=== PATIENT | female | born 1995 | race Hispanic/Latino ===

== ENCOUNTER 2018-12-18 10:26 | Emergency (ER) | payer SELFPAY ==
[2018-12-18 11:06] LABS: Absolute Lymphocytes (CBC) 1.6 K/uL (0.7-4.9); Absolute Monocytes 0.6 K/uL (0.1-1.3); Absolute Neutrophil 7.3 K/uL (1.8-8.0); Basophils % 0.3 % (0-1.3); Eosinophils % 1.8 % (0-4.4); Lymphocytes % 16.7 % (15.3-44.8); MPV 9.3 fL (7.6-11.3); Monocytes % 6.1 % (3.3-12.3); RBC Red Blood Cell Count 3.99 M/uL (3.86-4.86)
[2018-12-18 11:22] LABS: BUN Blood Urea Nitrogen 12 mg/dL (7-18); Bicarbonate 27 mmol/L (21-32); Glucose Level 87 mg/dL (74-106); Potassium 3.8 mmol/L (3.5-5.1); Sodium Level 140 mmol/L (136-145)
[2018-12-18 11:22] LABS: Urine Blood NEGATIVE (NEG); Urine Glucose NEGATIVE (NEG); Urine Protein TRACE (NEG); Urine pH 7.5 (5.0-7.0)
[2018-12-18] MEDS ORDERED: KETOROLAC 30 MG/ML INJ ONE (11:24)
--- NOTE | 2018-12-18 11:38 | RAD REPORT ---
EXAM DESCRIPTION: US - Transvaginal Study Probe - 12/18/2018 11:27 am CLINICAL HISTORY: Pelvic pain COMPARISON: none FINDINGS: The uterus measures 8 x 4 x 6cm. A fibroid is not seen. Endometrial stripe measures 3 mill imeters. The ovaries are normal in size and echotexture. An adnexal mass is not seen. No significant free fluid is seen. IMPRESSION: Unremarkable pelvic ultrasound
--- NOTE | 2018-12-18 11:43 | ER ---
Nurse's Notes [facility] Name: Samia Dominguez Age: 23 yrs Sex: Female : 1995 Arrival Date: 12/18/2018 Time: 10:29 Bed 13 Private MD: None, None Diagnosis: Dysmenorrhea, unspecified Presentation: 12/18 10:45 Presenting complaint: Patient states: Have had lower abdominal and pelvic pain for a sg couple days, has had painful menstruation in the past with cramping but never has had the pain be this bad, reports is currently on her period with a heavy flow, denies N/V/D/Fever. Transition of care: patient was not received from another setting of care. Onset of symptoms was December 18, 2018. Risk Assessment: Do you want to hurt yourself or someone else? Patient reports no desire to harm self or others. Initial Sepsis Screen: Does the patient meet any 2 criteria? No. Patient's initial sepsis screen is negative. Does the patient have a suspected source of infection? Yes: Acute abdominal pain. Care prior to arrival: Medication(s) given: Tramadol 50, Motrin 400, Acetaminophen 1 gram. 10:45 Method Of Arrival: Ambulatory sg 10:45 Acuity: GIANLUCA 3 sg TIER OVER: 10:56 LMP 12/18/2018 sg Historical: - Allergies: 10:58 No Known Allergies; sg - Home Meds: 10:58 Xopenex Inhl [Active]; sg - PMHx: 10:58 Asthma; sg - PSHx: 10:58 ; sg - Immunization history:: Adult Immunizations up to date. - Social history:: Smoking status: Patient/guardian denies using tobacco. - Ebola Screening: : Patient negative for fever greater than or equal to 101.5 degrees Fahrenheit, and additional compatible Ebola Virus Disease symptoms Patient denies exposure to infectious person Patient denies travel to an Ebola-affected area in the 21 days before illness onset No symptoms or risks identified at this time. Screenin:50 Abuse screen: Denies threats or abuse. Denies injuries from another. Nutritional sg screening: No deficits noted. Tuberculosis screening: No symptoms or risk factors identified. Never had TB. Fall Risk None identified. Assessment: 10:50 General: Appears in no apparent distress. uncomfortable, well groomed, well developed, sg well nourished, Behavior is cooperative, crying. Pain: Complains of pain in left lower quadrant and right lower quadrant and suprapubic area Quality of pain is described as crampy, sharp. Neuro: Level of Consciousness is awake, alert, obeys commands, Oriented to person, place, time, Speech is normal, Facial symmetry appears normal. Cardiovascular: Capillary refill is brisk in bilateral fingers Patient's skin is warm and dry. Chest pain is denied. Respiratory: Airway is patent Respiratory effort is even, unlabored, Respiratory pattern is regular, symmetrical. GI: Abdomen is flat, non-distended, Bowel sounds present X 4 quads. Abd is soft X 4 quads Abdomen is tender to palpation in right lower quadrant and left lower quadrant Guarding noted in right lower quadrant and left lower quadrant. : No signs and/or symptoms were reported regarding the genitourinary system. EENT: No signs and/or symptoms were reported regarding the EENT system. Derm: Skin is pink, warm \T\ dry. Musculoskeletal: No signs and/or symptoms reported regarding the musculoskeletal system. 11:35 Reassessment: heating pad applied to lower abd. sg Vital Signs: 10:56 BP 117 / 85; Pulse 76; Resp 16; Temp 97.2; Pulse Ox 100% on R/A; Weight 57.61 kg; sg Height 5 ft. 2 in. (157.48 cm); Pain 10/10; 10:56 Body Mass Index 23.23 (57.61 kg, 157.48 cm) sg ED Course: 10:29 Patient arrived in ED. mr 10:30 None, None is Private Physician. mr 10:30 Analy Cevallos [facility]C [facility]. kb 10:30 Ventura Cantu MD is Attending Physician. kb 10:51 Jabier Mendez, RAVINDER is Primary Nurse. sg 10:55 Triage completed. sg 10:56 Initial lab(s) drawn, by me, sent to lab. Inserted saline lock: 22 gauge in right dh3 forearm, using aseptic technique. Blood collected. 10:57 Arm band placed on. sg 11:27 US Transvaginal Study (Probe) In Process Unspecified. EDMS Administered Medications: 11:29 Drug: TORadol 30 mg Route: IVP; Site: right antecubital; sg Outcome: 11:41 Discharge ordered by . leah 12:12 Patient left the ED. Signatures: Dispatcher [employer] EDAnaly Barron, GABBY COOK-Jabier Bingham RN RN Michelle Almaraz mr Babar, Petra 3 Corrections: (The following items were deleted from the chart) 10:57 10:45 Care prior to arrival: None. coreen angela
--- NOTE | 2018-12-18 11:43 | EDPHYS ---
Physician Documentation [facility] Name: Samia Dominguez Age: 23 yrs Sex: Female : 1995 Arrival Date: 12/18/2018 Time: 10:29 Bed 13 Private MD: None, None ED Physician Ventura Cantu HPI: 12/18 10:48 This 23 yrs old Female presents to ER via Unassigned with complaints of kb Abdominal Pain. 10:48 The patient presents with abdominal pain in the lower abdomen. Onset: The kb symptoms/episode began/occurred last night. The symptoms do not radiate. Associated signs and symptoms: Pertinent positives: vaginal bleeding. The symptoms are described as constant. Modifying factors: The symptoms are alleviated by nothing, the symptoms are aggravated by pressure. Severity of pain: At its worst the pain was severe in the emergency department the pain is unchanged. The patient has experienced similar episodes in the past, a few times, but today's symptoms are worse, more painful. The patient has not recently seen a physician. Pt states she started her menstrual cycle last night with cramping. STates she normally has cramping, but this time it is severe pain. States she was being worked up for endometriosis by dr Pickering, but then he stopped practicing so she didn't get an answer about it. . 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 - Social history:: Smoking status: Patient/guardian denies using tobacco. - Ebola Screening: : Patient negative for fever greater than or equal to 101.5 degrees Fahrenheit, and additional compatible Ebola Virus Disease symptoms Patient denies exposure to infectious person Patient denies travel to an Ebola-affected area in the 21 days before illness onset No symptoms or risks identified at this time. ROS: 10:48 Constitutional: Negative for fever, chills, and weight loss, Cardiovascular: Negative kb for chest pain, palpitations, and edema, Respiratory: Negative for shortness of breath, cough, wheezing, and pleuritic chest pain, MS/Extremity: Negative for injury and deformity, Skin: Negative for injury, rash, and discoloration, Neuro: Negative for headache, weakness, numbness, tingling, and seizure. 10:48 Abdomen/GI: Positive for abdominal pain. 10:48 : Positive for pelvic pain, vaginal bleeding. Exam: 10:51 Head/Face: Normocephalic, atraumatic. Chest/axilla: Normal chest wall appearance and kb motion. Nontender with no deformity. No lesions are appreciated. Cardiovascular: Regular rate and rhythm with a normal S1 and S2. No gallops, murmurs, or rubs. Normal PMI, no JVD. No pulse deficits. Respiratory: Lungs have equal breath sounds bilaterally, clear to auscultation and percussion. No rales, rhonchi or wheezes noted. No increased work of breathing, no retractions or nasal flaring. Back: No spinal tenderness. No costovertebral tenderness. Full range of motion. Skin: Warm, dry with normal turgor. Normal color with no rashes, no lesions, and no evidence of cellulitis. MS/ Extremity: Pulses equal, no cyanosis. Neurovascular intact. Full, normal range of motion. Neuro: Awake and alert, GCS 15, oriented to person, place, time, and situation. Cranial nerves II-XII grossly intact. Motor strength 5/5 in all extremities. Sensory grossly intact. Cerebellar exam normal. Normal gait. 10:51 Constitutional: The patient appears alert, awake, in obvious pain. 10:51 Abdomen/GI: Inspection: abdomen appears normal, Bowel sounds: normal, in all quadrants, Palpation: moderate abdominal tenderness, in the suprapubic area, right lower quadrant and left lower quadrant. Vital Signs: 10:56 BP 117 / 85; Pulse 76; Resp 16; Temp 97.2; Pulse Ox 100% on R/A; Weight 57.61 kg; sg Height 5 ft. 2 in. (157.48 cm); Pain 10; 10:56 Body Mass Index 23.23 (57.61 kg, 157.48 cm) sg MDM: 10:44 Patient medically screened. kb 10:51 Data reviewed: vital signs, nurses notes. Data interpreted: Pulse oximetry: on room air kb is 100 %. Interpretation: normal. 11:41 Counseling: I had a detailed discussion with the patient and/or guardian regarding: the kb historical points, exam findings, and any diagnostic results supporting the discharge/admit diagnosis, lab results, radiology results, the need for outpatient follow up, an OB/Gyne specialist, to return to the emergency department if symptoms worsen or persist or if there are any questions or concerns that arise at home. 12/18 10:47 Order name: Basic Metabolic Panel; Complete Time: 11:33 kb 12/18 10:47 Order name: CBC with Diff; Complete Time: 11:14 kb 12/18 10:47 Order name: US Transvaginal Study (Probe); Complete Time: 11:41 kb 12/18 11:06 Order name: Urine Dipstick--Ancillary (enter results); Complete Time: 11:33 sg 12/18 11:06 Order name: Urine --Ancillary (enter results); Complete Time: 11:33 sg 12/18 10:47 Order name: IV Saline Lock; Complete Time: 10:59 kb 12/18 10:47 Order name: Labs collected and sent; Complete Time: 10:59 kb 12/18 10:47 Order name: Urine Test (obtain specimen); Complete Time: 11:04 kb 12/18 10:47 Order name: Urine Dipstick-Ancillary (obtain specimen); Complete Time: 11:04 kb Administered Medications: 11:29 Drug: TORadol 30 mg Route: IVP; Site: right antecubital; Disposition: 18:25 Co-signature as Attending Physician, Ventura Cantu MD. gs Disposition: 12/18/18 11:41 Discharged to Home. Impression: Dysmenorrhea, unspecified. - Condition is Stable. - Discharge Instructions: Dysmenorrhea, [id number]. - Prescriptions for Diclofenac Sodium 75 mg Oral Tablet, Delayed Release (E.C.) - take 1 tablet by ORAL route 2 times per day As needed; 30 tablet. - Medication Reconciliation Form, Thank You Letter, Antibiotic Education, Prescription Opioid Use form. - Work release form (12/18/18 13:10). iw - Follow up: Emergency Department; When: As needed; Reason: Worsening of condition. Follow up: Private Physician; When: 2 - 3 days; Reason: Recheck today's complaints, Continuance of care, Re-evaluation by your physician. Signatures: Dispatcher [employer] Carrillo Dangistin, MASONRY CONTRACTOR-C MASONRY CONTRACTOR-Ckb Jabier Mendez RN RN sg Ventura Cantu MD MD gs Williams, Irene RN iw Corrections: (The following items were deleted from the chart) 12:12 11:41 12/18/2018 11:41 Discharged to Home. Impression: Dysmenorrhea, unspecified. sg Condition is Stable. Forms are Medication Reconciliation Form, Thank You Letter, Antibiotic Education, Prescription Opioid Use. Follow up: Emergency Department; When: As needed; Reason: Worsening of condition. Follow up: Private Physician; When: 2 - 3 days; Reason: Recheck today's complaints, Continuance of care, Re-evaluation by your physician. kb
== END 2018-12-18 12:12 | disposition home or self-care (01) ==
LOC: ER 10:26
DX: N94.6 Dysmenorrhea, unspecified (principal); J45.909 Unspecified asthma, uncomplicated
CPT/HCPCS: 36415; 76830; 80048; 81003; 81025; 85025; 96374; 99284

== ENCOUNTER 2021-11-15 09:24 | Emergency (ER) | payer OTHER, SELFPAY ==
--- OUTSIDE RECORDS SUMMARY | 2021-11-15 09:27 | XMS REPORT | Continuity of Care Document ---
:1995 Author Organization [facility] t Address [address] [place] [address] [place] [id number] Care Team Providers Name Role Phone Unavailable Unavailable Unavailable Problems This patient has no known problems. Allergies, Adverse Reactions, Alerts Allergy Allergy Status Severity Reaction(s) Onset Inactive Treating Comm ents Source Name Type Date Date Clinician NO KNOWN Allergy Active [facility] Medications This patient has no known medications. Procedures This patient has no known procedures. Results This patient has no known results.
[2021-11-15 10:38] LABS: Absolute Lymphocytes (CBC) 1.4 K/uL (0.7-4.9); Hematocrit 41.1 % (36.0-45.0); Lymphocytes % 14.1 % (15.3-44.8); MPV 8.4 fL (7.6-11.3); RBC Red Blood Cell Count 4.12 M/uL (3.86-4.86)
[2021-11-15] MEDS ORDERED: ONDANSETRON 4 MG/2 ML VIAL ONE (10:38)
[2021-11-15] MEDS ORDERED: MORPHINE 4 MG/ML SYR ONE (10:38)
[2021-11-15] MEDS ORDERED: FAMOTIDINE 20 MG/2 ML VIAL IV ONE (10:38)
[2021-11-15 10:49] LABS: Urine Blood Negative (Negative); Urine Glucose Negative (Negative); Urine Protein Negative (Negative)
--- NOTE | 2021-11-15 10:52 | RAD REPORT ---
EXAM DESCRIPTION: US - Abdomen Exam Limited - 11/15/2021 10:31 am CLINICAL HISTORY: Abdominal pain. COMPARISON: None. FINDINGS: The gallbladder wall is not thickened. A gallstone is not seen. The biliary tree is normal caliber. IMPRESSION: Unremarkable gallbladder ultrasound.
[2021-11-15 10:59] LABS: ALT/SGPT 20 U/L (12-78); AST/SGOT 16 U/L (15-37); Albumin 4.2 g/dL (3.4-5.0); Alkaline Phosphatase 67 U/L (45-117); BUN Blood Urea Nitrogen 10 mg/dL (7-18); Bicarbonate 30 mmol/L (21-32); Bilirubin Total 0.9 mg/dL (0.2-1.0); Glucose Level 79 mg/dL (74-106); Lipase 83 U/L (73-393); Potassium 3.9 mmol/L (3.5-5.1); Protein, Total 7.9 g/dL (6.4-8.2); Sodium Level 139 mmol/L (136-145)
--- NOTE | 2021-11-15 11:35 | RAD REPORT ---
EXAM DESCRIPTION: CT - Abdomen Pelvis W Contrast - 11/15/2021 11:11 am CLINICAL HISTORY: Abdominal pain COMPARISON: none. TECHNIQUE: Computed axial tomography of the abdomen pelvis was obtained. 100 cc Isovue-300 was admin istered intravenously. Oral contrast was not requested which limits evaluation of bowel. All CT scans are performed using dose optimization technique as appropriate and may include automated exposure control or mA/KV adjustment according to patient size. FINDINGS: The liver, spleen, pancreas, adrenal and kidneys appear unremarkable. There is no evidence of diverticulitis. Normal appendix. No adnexal mass Moderate to large amount of stool present throughout the colon Fluid is present within mildly distended distal esophagus IMPRESSION: Moderate to large amount of stool present throughout the colon Fluid is present within mildly distended distal esophagus. This may indicate reflux and should be cor related clinically
--- NOTE | 2021-11-15 11:38 | EDPHYS ---
Physician Documentation [facility] Name: Samia Dominguez Age: 26 yrs Sex: Female : 1995 Arrival Date: 11/15/2021 Time: 09:30 Bed DIS1 Private MD: ED Physician William Estrada HPI: 11/15 10:24 This 26 yrs old Female presents to ER via Ambulatory with complaints of jr8 Abdominal Pain. 10:24 The patient presents with abdominal pain in the upper abdomen. Onset: The jr8 symptoms/episode began/occurred acutely, yesterday. The symptoms radiate to back. Associated signs and symptoms: Pertinent positives: nausea. The symptoms are described as stabbing. Modifying factors: The symptoms are alleviated by nothing, the symptoms are aggravated by movement. Severity of pain: At its worst the pain was moderate in the emergency department the pain is unchanged. The patient has not experienced similar symptoms in the past. The patient has not recently seen a physician. BALER: 11:42 LMP N/A - other ap3 Historical: - Allergies: 09:46 No Known Allergies; ll1 - PMHx: 09:46 Asthma; adhd; ll1 - PSHx: 09:46 section; ll1 - Immunization history:: Client reports having NOT received the Covid vaccine. Flu vaccine status is unknown. - Social history:: Smoking status: Patient/guardian denies using tobacco, the patient reports quitting approximately 1 years ago. ROS: 10:24 Constitutional: Negative for fever, chills, and weight loss, Cardiovascular: Negative jr8 for chest pain, palpitations, and edema, Respiratory: Negative for shortness of breath, cough, wheezing, and pleuritic chest pain, Back: Negative for injury and pain, MS/Extremity: Negative for injury and deformity, Skin: Negative for injury, rash, and discoloration, Neuro: Negative for headache, weakness, numbness, tingling, and seizure. 10:24 Abdomen/GI: Positive for abdominal pain, nausea, Negative for diarrhea. Exam: 10:24 Cardiovascular: Regular rate and rhythm with a normal S1 and S2. No gallops, murmurs, jr8 or rubs. Normal PMI, no JVD. No pulse deficits. Respiratory: Lungs have equal breath sounds bilaterally, clear to auscultation and percussion. No rales, rhonchi or wheezes noted. No increased work of breathing, no retractions or nasal flaring. Back: No spinal tenderness. No costovertebral tenderness. Full range of motion. Skin: Warm, dry with normal turgor. Normal color with no rashes, no lesions, and no evidence of cellulitis. MS/ Extremity: Pulses equal, no cyanosis. Neurovascular intact. Full, normal range of motion. Neuro: Awake and alert, GCS 15, oriented to person, place, time, and situation. Motor strength 5/5 in all extremities. Sensory grossly intact. 10:24 Constitutional: The patient appears alert, awake, in obvious pain. 10:24 Abdomen/GI: Inspection: abdomen appears normal, Bowel sounds: active, all quadrants, Palpation: soft, in all quadrants, moderate abdominal tenderness, in the epigastric area and right upper quadrant, mass, is not appreciated, rebound tenderness, is not appreciated, voluntary guarding, is not appreciated, involuntary guarding, is not appreciated, no appreciated organomegaly, Indicators: McBurney's point is not tender, Guillermo's sign is positive, Liver: tenderness, is not appreciated. Vital Signs: 09:45 BP 136 / 85; Pulse 91; Resp 17; Temp 98.8; Pulse Ox 100% ; Pain 8/10; ll1 MDM: 09:56 Patient medically screened. jr8 11:36 Data reviewed: vital signs, nurses notes, lab test result(s), radiologic studies, CT jr8 scan, ultrasound. Data interpreted: Pulse oximetry: on room air is 100 %. Interpretation: normal. 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 Response to treatment: the patient's symptoms have markedly improved after treatment. ED course: Discussed with patient that based on labs, imaging, physical exam. Is most likely that she is having some gastritis/esophagitis. We will start her on a proton pump inhibitor and have her follow-up with GI. Patient good with this and knows to come back if worsening point time.. 11/15 09:50 Order name: CBC with Diff; Complete Time: 10:42 jr8 11/15 09:50 Order name: CMP; Complete Time: 11:00 8 11/15 09:50 Order name: Lipase; Complete Time: 11:00 8 11/15 10:49 Order name: Urine Dipstick-Ancillary; Complete Time: 10:58 EDMS 11/15 10:51 Order name: Urine Dipstick-Ancillary EDMS 11/15 10:51 Order name: Urine --Ancillary (enter results); Complete Time: 11:19 bd 11/15 09:50 Order name: Abdomen Limited US; Complete Time: 10:58 jr8 11/15 09:50 Order name: IV Saline Lock; Complete Time: 10:33 jr8 11/15 09:50 Order name: Labs collected and sent; Complete Time: 10:33 jr8 11/15 09:50 Order name: Urine Dipstick-Ancillary (obtain specimen); Complete Time: 11:02 jr8 11/15 10:59 Order name: CT Abd/Pelvis - IV Contrast Only; Complete Time: 11:36 8 11/15 09:50 Order name: Urine Test (obtain specimen); Complete Time: 11:02 jr8 Administered Medications: 10:40 Drug: Pepcid (famotidine) 20 mg Route: IVP; Site: left antecubital; ap3 11:43 Follow up: Response: No adverse reaction ap3 10:40 Drug: Zofran (Ondansetron) 4 mg Route: IVP; Site: left antecubital; ap3 11:44 Follow up: Response: No adverse reaction ap3 10:40 Drug: morphine 4 mg Route: IVP; Site: left antecubital; ap3 11:43 Follow up: Response: No adverse reaction ap3 Disposition: 14:15 Co-signature as Attending Physician, William HARDIN was immediately available on-site ms3 in the Emergency Department for consultation in the care of the patient.. Disposition Summary: 11/15/21 11:38 Discharge Ordered Location: Home jr8 Problem: new jr8 Symptoms: have improved jr8 Condition: Stable jr8 Diagnosis - Esophagitis, unspecified jr8 - Acute gastritis jr8 Followup: jr8 - With: Ventura Worthington MD - When: 5 - 6 days - Reason: Recheck today's complaints, Continuance of care, Re-evaluation by your physician Discharge Instructions: - Discharge Summary Sheet jr8 - Esophagitis jr8 - Gastritis, Adult jr8 Forms: - Medication Reconciliation Form jr8 - Work release form jr8 - Thank You Letter jr8 - Antibiotic Education jr8 - Prescription Opioid Use jr8 Prescriptions: - omeprazole 40 mg Oral capsule,delayed release(DR/EC) - take 1 capsule by ORAL route once daily before a meal; 30 capsule; Refills: 0, jr8 Product Selection Permitted Signatures: Dispatcher [employer] EDMS Dawit Figueredo PA PA jr8 Mayda Duarte RN RN ap3 Annetta Goins RN RN ll1 William Estrada DO DO ms3
--- NOTE | 2021-11-15 11:38 | ER ---
Nurse's Notes [facility] Name: Samia Dmoinguez Age: 26 yrs Sex: Female : 1995 Arrival Date: 11/15/2021 Time: 09:30 Bed DIS1 Private MD: Diagnosis: Esophagitis, unspecified;Acute gastritis Presentation: 11/15 09:45 Chief complaint: Patient states: Epigastric pain with nausea since Saturday. No fever. ll1 Coronavirus screen: Vaccine status: Patient reports being unvaccinated. Client denies travel out of the [place] in the last 14 days. At this time, the client does not indicate any symptoms associated with coronavirus-19. Ebola Screen: Patient denies travel to an Ebola-affected area in the 21 days before illness onset. Initial Sepsis Screen: Does the patient meet any 2 criteria? No. Patient's initial sepsis screen is negative. Does the patient have a suspected source of infection? Yes: Acute abdominal pain. Risk Assessment: Do you want to hurt yourself or someone else? Patient reports no desire to harm self or others. Onset of symptoms was November 12, 2021. 09:45 Method Of Arrival: Ambulatory ll1 09:45 Acuity: GIANLUCA 3 ll1 Triage Assessment: 09:48 General: Appears uncomfortable, Behavior is cooperative, appropriate for age. Pain: ll1 Complains of pain in epigastric Quality of pain is described as aching. GI: Reports upper abdominal pain, nausea. 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 Flu vaccine status is unknown. - Social history:: Smoking status: Patient/guardian denies using tobacco, the patient reports quitting approximately 1 years ago. Screenin:42 Abuse screen: Denies threats or abuse. Nutritional screening: No deficits noted. ap3 Tuberculosis screening: No symptoms or risk factors identified. 10:44 Fall Risk None identified. ap3 Assessment: 10:41 General: patient provided with urine specimen container, and education on proper urine ap3 collection. patient verbalized understanding. . 10:42 General: Appears in no apparent distress. uncomfortable, Behavior is calm, cooperative, ap3 appropriate for age. Pain: Complains of pain in right upper quadrant and epigastric area Pain began 2-3 days ago. Neuro: Level of Consciousness is awake, alert, obeys commands, Oriented to person, place, time, situation, Gait is steady, Speech is normal. Cardiovascular: Patient's skin is warm and dry. Respiratory: Airway is patent Respiratory effort is even, unlabored. 10:43 GI: Bowel sounds present X 4 quads. Abd is soft. ap3 Vital Signs: 09:45 BP 136 / 85; Pulse 91; Resp 17; Temp 98.8; Pulse Ox 100% ; Pain 8/10; ll1 ED Course: 09:30 Patient arrived in ED. rg4 09:45 Arm band placed on. ll1 09:46 Triage completed. ll1 09:49 Dawit Figueredo PA is PHCP. jr8 09:49 William Estrada DO is Attending Physician. jr8 10:15 Mauro Glynn is Primary Nurse. ab2 10:33 Abdomen Limited US In Process Unspecified. EDMS 10:33 CBC with Diff Sent. ab2 10:33 CMP Sent. ab2 10:33 Lipase Sent. ab2 10:43 Patient has correct armband on for positive identification. patient in hallway chair, ap3 in line of vision with nurses station. Pulse ox on. NIBP on. curtain closed. 11:13 CT Abd/Pelvis - IV Contrast Only In Process Unspecified. EDMS 11:37 Ventura Worthington MD is Referral Physician. jr8 11:41 IV discontinued, intact, bleeding controlled, No redness/swelling at site. Pressure ap3 dressing applied. 11:42 No provider procedures requiring assistance completed. ap3 Administered Medications: 10:40 Drug: Pepcid (famotidine) 20 mg Route: IVP; Site: left antecubital; ap3 11:43 Follow up: Response: No adverse reaction ap3 10:40 Drug: Zofran (Ondansetron) 4 mg Route: IVP; Site: left antecubital; ap3 11:44 Follow up: Response: No adverse reaction ap3 10:40 Drug: morphine 4 mg Route: IVP; Site: left antecubital; ap3 11:43 Follow up: Response: No adverse reaction ap3 Outcome: 11:38 Discharge ordered by MD. waterman 11:42 Discharged to home ambulatory. ap3 11:42 Condition: good 11:42 Discharge instructions given to patient, Instructed on discharge instructions, follow up and referral plans. medication usage, Demonstrated understanding of instructions, follow-up care, medications, Prescriptions given X 1. 11:44 Patient left the ED. ap3 Signatures: Dispatcher [employer] EDMS Dawit Figueredo PA PA jr8 Garcia, Rubi rg4 Prokisch, Amanda RN RN ap3 Annetta Goins RN RN ll1 Mauro Glynn
[2021-11-15 12:07] VITALS: BP 136/85; TEMP 98.8; O2SAT 100
== END 2021-11-15 11:44 | disposition home or self-care (01) ==
LOC: ER 09:24
DX: K20.90 Esophagitis, unspecified without bleeding (principal); K29.00 Acute gastritis without bleeding
CPT/HCPCS: 85025; 36415; 81025; 81003; 83690; 80053; 74177; 76705; Q9967; J2405